=== PATIENT | female | born 1995 | race Caucasian/White ===

== ENCOUNTER 2016-11-30 08:37 | Outpatient (CLI) | payer MEDICAID ==
[2016-11-30 18:07] LABS: BILIRUBIN,URINE NEGATIVE (NEGATIVE)
[2016-11-30 18:17] LABS: WBC,URINE 0-3 /HPF (0-5)
[2016-11-30 18:18] LABS: UR CULTURE IF IND NOT INDICATED
[2016-11-30 19:01] LABS: CALCIUM 9.6 mg/dL (8.5-10.3); CREATININE 0.6 mg/dL (0.4-1.0)
== END 2016-11-30 08:38 | disposition home or self-care (01) ==
LOC: LAB.F 08:37
PROVIDERS: ATTEND Nurse Practitioner Family
DX: Z79.899 Other long term (current) drug therapy (principal)
CPT/HCPCS: 36415; 80178; 81001; 82310; 82565; 84443; 87086

== ENCOUNTER 2016-12-07 08:30 | Outpatient (CLI) | payer MEDICAID | END 2016-12-07 08:31 | disposition home or self-care (01) | LOC: LAB.F 08:30 | PROVIDERS: ATTEND Nurse Practitioner Family | DX: F60.3 Borderline personality disorder (principal) | CPT/HCPCS: 36415; 80178 ==

== ENCOUNTER 2017-01-03 08:27 | Outpatient (CLI) | payer MEDICAID | END 2017-01-03 08:28 | disposition home or self-care (01) | DX: Z79.899 Other long term (current) drug therapy (principal) ==

== ENCOUNTER 2017-01-11 16:15 | Outpatient (CLI) | payer MEDICAID ==
--- NOTE | 2017-01-13 08:52 | XRAY Report ---
RIGHT FOOT, THREE VIEWS: 01/11/2017 Joint pain. Soft tissue appears normal. No fracture or bone lesion is seen. No significant arthritic changes no anika. IMPRESSION: NORMAL RIGHT FOOT. JOB #: [id number] EXT JOB #:[id number]
== END 2017-01-11 16:16 | disposition home or self-care (01) ==
LOC: DI.S 16:15
PROVIDERS: ATTEND Nurse Practitioner Family
DX: M25.571 Pain in right ankle and joints of right foot (principal)